=== PATIENT | female | born 1970 | race Caucasian/White ===

== ENCOUNTER → 2018-09-16 | Outpatient (CLI) | payer BC ==
--- NOTE | 2018-09-16 13:08 | FL ---
EXAMINATION TYPE: FL barium swallow w video DATE OF EXAM: 09/16/2018 MODIFIED SWALLOW / DEGLUTITION STUDY CLINICAL HISTORY: Dysphagia. TECHNIQUE: Deglutition study is performed utilizing thin liquid barium, honey and nectar thick liqui d barium, barium thick applesauce, and barium coated cracker. 1 minute and 2 seconds of fluoroscopy t denisse was utilized. 0 fluoroscopic images were saved as the examination was video recorded. COMPARISON: None. FINDINGS: The oral and pharyngeal phases show satisfactory initiation and propagation with all modali ties tested. Normal mastication is seen with solid modalities tested. There is no evidence of penet ration or aspiration with any modality tested. No significant pharyngeal residue was appreciated. IMPRESSION: Unremarkable deglutition study. Please refer to speech therapist notes for further detai ls if necessary.
== END ==
LOC: RADFLMAIN 11:03
PROVIDERS: ATTEND Internal Medicine
DX: K21.9 Gastro-esophageal reflux disease without esophagitis (principal); J02.8 Acute pharyngitis due to other specified organisms
CPT/HCPCS: 74230

== ENCOUNTER → 2019-02-06 | Outpatient (CLI) | payer BC ==
--- NOTE | 2019-02-06 11:06 | US ---
EXAMINATION TYPE: US pelvis complete transvag DATE OF EXAM: 02/06/2019 COMPARISON: NONE CLINICAL HISTORY: R10.2 Pelvic Pain. Left side pain. Patient states having a history of ovarian cyst s. TECHNIQUE: Transvaginal (TV) and Transabdominal (TA) . Transabdominal sonographic images of the pel vis were acquired. Transvaginal sonographic images were medically necessary to better assess the fol lowing anatomy: Ovaries, endometrium, uterus Date of LMP: 01/24/2019, EXAM MEASUREMENTS: Uterus: 8.2 x 4.3 x 5.2 cm Endometrial Stripe: 0.5 cm Right Ovary: 2.9 x 1.3 x 1.2 cm Left Ovary: 3.0 x 1.0 x 1.2 cm 1. Uterus: Retroverted Left fundal hypoechoic lesion = 0.9 x 0.8 x 0.7 cm 2. Endometrium: wnl 3. Right Ovary: wnl 4. Left Ovary: wnl 5. Bilateral Adnexa: prominent vessels visualized in left adnexa 6. Posterior cul-de-sac: free fluid IMPRESSION: 1. 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 2. 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
== END | disposition home or self-care (01) ==
LOC: RADUSWWP 08:41
PROVIDERS: ATTEND Internal Medicine
DX: N94.89 Other specified conditions associated with female genital organs and menstrual cycle (principal)
CPT/HCPCS: 76830; 76856

== ENCOUNTER → 2019-02-12 | Outpatient (CLI) | payer BC ==
--- NOTE | 2019-02-12 10:05 | CT ---
EXAMINATION TYPE: CT pelvis w con DATE OF EXAM: 02/12/2019 COMPARISON: Ultrasound dated 02/06/2019 HISTORY: Noninflammatory disorder of uterus CT DLP: 437 mGycm Automated exposure control for dose reduction was used. Contrast enhanced CT of the pelvis was perfor med. GI contrast was utilized. CONTRAST: Performed with IV Contrast, patient injected with 100 mL of Isovue 300. FINDINGS: Tubal ligation clips are seen bilaterally. Uterus and ovaries appear to be of normal size. No ovarian masses are detected. Prominent vasculature along the left uterine sidewall may reflect periuterine v arices. Correlate for pelvic congestion syndrome. Small uterine lesion described on ultrasound is not reproduced at this time. No evidence for free fluid. No pelvic adenopathy. Visualized lower poles of the kidneys as well as visualized bowel loops appear unremarkable. IMPRESSION: 1. LEFT-SIDED PERIUTERINE VARICES NOTED. CORRELATE FOR PELVIC CONGESTION SYNDROME.
== END | disposition home or self-care (01) ==
LOC: RADCTMAIN 07:34
PROVIDERS: ATTEND Internal Medicine
DX: N85.8 Other specified noninflammatory disorders of uterus (principal)
CPT/HCPCS: 72193; Q9967